=== PATIENT | female | born 1975 | race Two or more races ===

== ENCOUNTER 2022-10-17 21:36 | Emergency (ER) | payer BC ==
[~2022-10-17] VITALS: Ht 162.6 cm; Wt 83.3 kg
[2022-10-17 21:58] LABS: Basophils # (auto) 0 10 ^3/uL (0-0.2); Eosinophils # (auto) 0.1 10 ^3/uL (0-0.8); Hemoglobin 14.7 g/dL (12.2-16.2); Monocytes # (auto) 0.6 10 ^3/uL (0-1.3)
[2022-10-17 22:04] LABS: Basophils % (auto) 0.4 % (0.0-2.0); Eosinophils % (auto) 1.6 % (0.0-7.0); Hematocrit 43.1 % (36.0-46.0); Lymphocytes # (auto) 0.9 10 ^3/uL (0.4-5.4); Lymphocytes % (auto) 11.5 % (10.0-50.0); Mean Corpuscular Volume 91.3 fL (80.0-100.0); Monocytes % (auto) 8.1 % (0.0-12.0); Neutrophils # (auto) 6.3 10 ^3/uL (1.6-8.6); Neutrophils % (auto) 78.4 % (37.0-80.0); Nucleated Red Blood Cells % 0.2 %; Red Blood Cells 4.72 10^6/uL (4.0-5.20); Red Cell Distribution Width 12.8 % (11.8-14.3)
[2022-10-17 22:14] LABS: Albumin 3.9 g/dL (3.4-5.0); Anion Gap 5 (5-15); Blood Urea Nitrogen 12 mg/dL (7-18); Calcium 8.9 mg/dL (8.7-10.4); Carbon Dioxide 25 mmol/L (21-32); Chloride 113 mmol/L (98-107); Glucose 119 mg/dL (74-106); INR 0.97 (0.9-1.15); Magnesium 2.7 mg/dL (1.6-2.6); Partial Thromboplastin Time 29.9 SEC (24.5-34.5); Potassium 3.7 mmol/L (3.5-5.1); Prothrombin Time 10.2 sec (9.3-11.8); Sodium 143 mmol/L (136-145)
[2022-10-17] MEDS ORDERED: LORazepam 0.5 MG TAB PO ONE (22:15)
[2022-10-17] MEDS ORDERED: KETOROLAC TROMETH 60MG/2ML VIAL IM ONE (22:15)
[2022-10-17 22:17] LABS: Alanine Aminotransferase 23 U/L (13-56); Alkaline Phosphatase 101 U/L (45-117); Aspartate Aminotransferase 17 U/L (15-37); BUN/Creatinine Ratio 11.1 (10.0-20.0)
[2022-10-17 22:22] LABS: Bilirubin, Total < 0.1 mg/dL (0.2-1.0)
[2022-10-17 22:40] LABS: Urine Bacteria NONE SEEN /hpf (None Seen); Urine Blood Negative /uL (Negative); Urine Clarity Clear (Clear); Urine Color Colorless (Yellow); Urine Protein, UAD Negative (Negative); Urine Specific Gravity 1.004 (1.001-1.035); Urine Urobilinogen Normal (Negative); Urine WBC <1 /hpf (0 - 5)
[2022-10-18 02:15] VITALS: PULSE 99; RESP 14; O2SAT 98
[2022-10-18 02:18] VITALS: BP 139/95; PULSE 99; RESP 14; TEMP 98.4; O2SAT 98
== END 2022-10-18 02:20 | disposition home or self-care (01) ==
LOC: ER 21:36
DX: R07.9 Chest pain, unspecified (principal); F41.9 Anxiety disorder, unspecified; Z79.899 Other long term (current) drug therapy
CPT/HCPCS: 36415; 71045; 80053; 81001; 83735; 83880; 84484; 85025; 85610; 85730; 93005; J1885